=== PATIENT | male | born 1995 | race African-American/Black ===

== ENCOUNTER 2016-10-29 17:49 | Emergency (ER) | payer MEDICAID, OTHER ==
[~2016-10-29] VITALS: Ht 167.6 cm; Wt 76.7 kg
[~2016-10-29 17:49] MED LIST: IBUPROFEN600 MG ORAL
[2016-10-29] MEDS ORDERED: Mylanta II UD 30ml ORAL ONE (19:15)
[2016-10-29] MEDS ORDERED: Dicyclomine HCl 10mg/5ml oral soln ORAL ONE (19:15)
[2016-10-29] MEDS ORDERED: Lidocaine 2% Visc 15ml soln ORAL ONE (19:15)
--- NOTE | 2016-10-29 19:24 | Emergency Room Report ---
History of Present Illness General Chief Complaint: Abdominal Pain Source: Patient Present Illness HPI 21 YO Male presents to the ED c/o burning epigastric pain with nausea and 1 episode of vomiting since this am. pt. reports hx of gastritis in the past. denies fevers, chills or diarrhea. reports having to strain to have bm's. denied blood in vomit or stool. denies abdominal tenderness. Patient denies recent travel or ill contacts. Denies CP, Palpitations, LOC, AMS, dizziness, Changes in Vision, Sensation, paresthesias, or a sudden severe headache. Allergies: Coded Allergies: No Known Allergies (Unverified , 02/07/15) Patient History Past Medical History: see triage record Past Surgical History: none Pertinent Family History: none Immunizations: UTD Reviewed Nursing Documentation: PMH: Agreed, PSxH: Agreed Nursing Documentation-PMH Past Medical History: No History, Except For Hx Gastrointestinal Problems: Yes - gastritis Review of Systems All Other Systems: negative except mentioned in HPI Physical Exam Vital Signs Date Time Temp Pulse Resp B/P Pulse Ox O2 Delivery O2 Flow Rate FiO2 10/29/16 18:10 98.4 82 17 116/71 99 Room Air Sp02 EP Interpretation: reviewed, normal General Appearance: no apparent distress, alert, GCS 15, non-toxic Head: normocephalic, atraumatic Eyes: bilateral eye PERRL, bilateral eye normal inspection ENT: hearing grossly normal, normal pharynx, no angioedema, normal voice Neck: full range of motion, supple/symm/no masses Respiratory: lungs clear, normal breath sounds, speaking full sentences Cardiovascular #1: regular rate, rhythm, no edema Gastrointestinal: normal bowel sounds - hyperactive bowel sounds, non tender, soft, no guarding, no rebound, other - Negative Parker signs, Negative MacBurney's sign, Negative Rosvigns Sign, Negative Psoas, No Peritoneal signs. Rectal: deferred Musculoskeletal: back normal, gait/station normal, normal range of motion, non- tender Neurologic: alert, oriented x3, responsive, motor strength/tone normal, sensory intact, speech normal Psychiatric: judgement/insight normal, memory normal, mood/affect normal Skin: normal color, no rash, warm/dry, well hydrated Lymphatic: no adenopathy Medical Decision Making PA Attestation Dr. Michaud is my supervising Physician whom patient management has been discussed with. Diagnostic Impression: Primary Impression: Gastritis Qualified Codes: K29.00 - Acute gastritis without bleeding ER Course Pt. presents to the ED c/o burning epigastric pain with nausea and 1 episode of vomiting since this am. pt. reports hx of gastritis in the past. denies fevers, chills or diarrhea. reports having to strain to have bm's. denied blood in vomit or stool. Ddx considered but are not limited to GE, colitis, acute appy, SBO, Vital signs: pt. is afebrile, H&PE are most consistent with gastritis- pt. has very benign PE, and onset since this am appendicitis not likely at this time. ORDERS: none required at this time, the diagnosis is clinical ED INTERVENTIONS: -4mg Zofran PO - Gi Cocktail - 150mg Zantac PO d/w pt. conservative treatment as most likely gastritis, but to return to ED with worsening of symptoms or new symptoms that could indicate obstruction or appendicitis. DISCHARGE: At this time pt. is stable for d/c to home. Will provide printed patient care instructions, and any necessary prescriptions. Care plan and follow up instructions have been discussed with the patient prior to discharge. Last Vital Signs Date Time Temp Pulse Resp B/P Pulse Ox O2 Delivery O2 Flow Rate FiO2 10/29/16 18:10 98.4 82 17 116/71 99 Room Air Disposition: HOME, SELF-CARE Condition: Stable Scripts Docusate Sodium* (COLACE*) 100 Mg Capsule 100 MG ORAL TWICE A DAY for 7 Days, #14 CAP Prov: Peyton Huitron.A. 10/29/16 Ondansetron Odt* (ZOFRAN ODT*) 4 Mg Tab.rapdis 4 MG ORAL Q6H Y for Nausea & Vomiting, #10 TAB Prov: Peyton Huitron P.A. 10/29/16 Ranitidine Hcl* (ZANTAC*) 150 Mg Tablet 150 MG ORAL TWICE A DAY for 14 Days, #28 TAB Prov: Peyton Huitron.[place]. 10/29/16 Referrals: [employer] [facility],REFERRIN (PCP) Patient Instructions: Gastritis, Adult Additional Instructions: Take medications as directed. Follow up with PCP in 3-5 days Return sooner to ED if new symptoms occur, or current symptoms become worse. - Please note that this Emergency Department Report was dictated using [employer] technology software, occasionally this can lead to erroneous entry secondary to interpretation by the dictation equipment. Peyton Huitron October 29, 2016 19:24
[2016-10-29] MEDS ORDERED: COLACE100 MG ORAL (19:29)
[2016-10-29] MEDS ORDERED: ZOFRAN ODT4 MG ORAL (19:29)
[2016-10-29] MEDS ORDERED: ZANTAC150 MG ORAL (19:29)
[2016-10-29 20:03] VITALS: BP 122/76
[2016-10-29 20:04] VITALS: BP 122/76
== END 2016-10-29 20:05 | disposition home or self-care (01) ==
LOC: EMR 18:48
DX: K29.70 Gastritis, unspecified, without bleeding (principal)
CPT/HCPCS: 99284

== ENCOUNTER 2017-12-25 22:46 | Emergency (ER) | payer OTHER, MEDICAID ==
[~2017-12-25] VITALS: Ht 167.6 cm; Wt 77.1 kg
[~2017-12-25 22:46] MED LIST changes: +COLACE100 MG ORAL; +ZANTAC150 MG ORAL; +ZOFRAN ODT4 MG ORAL
[2017-12-25] MEDS ORDERED: NKM (23:02)
[2017-12-25 23:15] VITALS: BP 128/81
--- NOTE | 2017-12-25 23:20 | Emergency Room Report ---
History of Present Illness General Chief Complaint: Generalized Weakness Source: Patient Present Illness HPI Is a 22-year-old male with no past medical history. He doesn't family she diabetes. He present with chief complaint of weakness. Has been ongoing for about more than a week now. He said that he will eat normally and then 2 to 3 hours later felt weak. He will eat again and felt better. He has been eating better with more vegetable and fruit and rice. Denies any nausea vomiting. Denies any diaphoresis. Denies any chest pain. No dysuria or hematuria. No frequency or urgency. Allergies: Coded Allergies: No Known Allergies (Unverified , 02/07/15) Patient History Past Medical History: none, see triage record, old chart reviewed Past Surgical History: none Pertinent Family History: DM Social History: Denies: smoking Immunizations: other Reviewed Nursing Documentation: PMH: Agreed; PSxH: Agreed Nursing Documentation-PM Past Medical History: No History, Except For Hx Gastrointestinal Problems: Yes - gastritis Review of Systems Constitutional: Reports: weakness Eye: Denies: eye pain, blurred vision ENT: Denies: ear pain, nose congestion, throat swelling Respiratory: Denies: cough, shortness of breath Cardiovascular: Denies: chest pain, palpitations Gastrointestinal: Denies: abdominal pain, diarrhea, nausea, vomiting Musculoskeletal: Denies: back pain, joint pain Skin: Denies: rash Neurological: Denies: headache, numbness Endocrine: Denies: increased thirst, increased urine Hematologic/Lymphatic: Denies: easy bruising All Other Systems: negative except mentioned in HPI Physical Exam Vital Signs Date Time Temp Pulse Resp B/P (MAP) Pulse Ox O2 Delivery O2 Flow Rate FiO2 12/25/17 22:57 98.2 61 16 134/84 96 Room Air 98.2 vitals normal Sp02 EP Interpretation: reviewed, normal General Appearance: well appearing, no apparent distress, alert Head: normocephalic, atraumatic Eyes: bilateral eye PERRL, bilateral eye EOMI ENT: hearing grossly normal, normal pharynx Neck: full range of motion, supple, no meningismus Respiratory: chest non-tender, lungs clear, normal breath sounds Cardiovascular #1: regular rate, rhythm, no murmur Gastrointestinal: normal bowel sounds, non tender, no mass, no organomegaly, no bruit, non-distended Musculoskeletal: back normal, gait/station normal, normal range of motion Psychiatric: mood/affect normal Skin: warm/dry Medical Decision Making Diagnostic Impression: Primary Impression: Episode of generalized weakness ER Course Patient presents with symptom of weakness. This may be secondary hypoglycemia. No evidence of diabetes but no evidence of sepsis or other infection. No evidence of dehydration. We'll discharge home. Last Vital Signs Date Time Temp Pulse Resp B/P (MAP) Pulse Ox O2 Delivery O2 Flow Rate FiO2 12/25/17 22:57 98.2 61 16 134/84 96 Room Air 98.2 Status: unchanged Disposition: HOME, SELF-CARE Condition: Stable Patient Instructions: Weakness Additional Instructions: Follow-up with your doctor in 7 days. Return if symptom worsen. TEZ TORRES M.D. Dec 25, 2017 23:20
[2017-12-25 23:50] LABS: APPEARANCE,URINE CLEAR; BILIRUBIN, URINE NEGATIVE (NEGATIVE); COLOR,URINE PALE YELLOW; GLUCOSE, URINE (UA) NEGATIVE (NEGATIVE); KETONES,URINE NEGATIVE (NEGATIVE); LEUKOCYTE ESTERASE ,URINE NEGATIVE (NEGATIVE); NITRITE,URINE NEGATIVE (NEGATIVE); PH,URINE 7 (4.5-8.0); PROTEIN,URINE NEGATIVE (NEGATIVE); UROBILINOGEN,URINE 1 MG/DL (0.0-1.0)
[2017-12-25 23:52] LABS: ANION GAP 8 mmol/L (5-15); BLOOD UREA NITROGEN 10 mg/dL (7-18); CALCIUM 9.6 MG/DL (8.5-10.1); CARBON DIOXIDE 29 MMOL/L (21-32); CHLORIDE 101 MMOL/L (98-107); CREATININE 1.1 MG/DL (0.55-1.30); POTASSIUM 3.6 MMOL/L (3.5-5.1); SODIUM 137 MMOL/L (136-145)
[2017-12-25 23:53] LABS: BASOPHILS % (AUTO) 1.7 % (0.0-2.0); HEMOGLOBIN 17.1 G/DL (14.2-18.0); LYMPHOCYTES % (AUTO) 53.2 % (20.0-45.0); MEAN CORPUSCULAR VOLUME 88 FL (80-99); MONOCYTES % (AUTO) 7.4 % (1.0-10.0); NEUTROPHILS % (AUTO) 36.6 % (45.0-75.0); PLATELET COUNT 283 K/UL (150-450); RED BLOOD COUNT 5.43 M/UL (4.70-6.10); RED CELL DISTRIBUTION WIDTH 10.2 % (11.6-14.8)
[2017-12-26 00:10] VITALS: BP 128/81
== END 2017-12-26 00:10 | disposition home or self-care (01) ==
LOC: EMR 23:03
DX: R53.1 Weakness (principal)
CPT/HCPCS: 36415; 80048; 81001; 85025; 99282